=== PATIENT | male | born 1995 | race Caucasian/White ===

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

== ENCOUNTER 2017-07-21 20:53 | Emergency (ER) | payer OTHER ==
[~2017-07-21] VITALS: Ht 182.9 cm; Wt 83.9 kg
--- NOTE | 2017-07-21 21:58 | RADIOLOGY REPORT ---
EXAMINATION: XR CHEST CLINICAL INFORMATION: 21-year-old boy with chest pain. COMPARISON: Chest x-ray done 07/11/2017. (Negative). TECHNIQUE: 2 views of the chest were obtained. FINDINGS: No significant abnormality is noted involving the heart, lungs, mediastinum, bony thorax or soft tissues. IMPRESSION: Unremarkable examination.
[2017-07-21 22:01] LABS: ABSOLUTE BASOPHIL COUNT 0 /CUMM (0.0-0.2); ABSOLUTE EOSINOPHIL COUNT 0.1 /CUMM (0.0-0.7); ABSOLUTE GRANULOCYTE CT 3.7 /CUMM (1.4-6.5); ABSOLUTE LYMPH COUNT 1.8 /CUMM (1.2-3.4); ABSOLUTE MONOCYTE COUNT 0.5 /CUMM (0.10-0.60); BASOPHIL % 0.6 % (0.0-2.0); EOSINOPHIL % 2.1 % (0-5); HEMATOCRIT 43.4 % (42-52); MEAN CORPUSCULAR HGB 31.3 PG (27.0-31.0); MEAN CORPUSCULAR HGB CONC 34.8 G/DL (33.0-37.0); MEAN CORPUSCULAR VOLUME 90.1 FL (80.0-94.0); MEAN PLATELET VOLUME 7.7 FL (7.4-10.4); PLATELET COUNT 238 /CUMM (130-400); RBC DISTRIBUTION WIDTH 12.5 % (11.5-14.5); RED BLOOD CELL CT 4.82 /CUMM (4.70-6.10); WHITE BLOOD CELL COUNT 6.2 /CUMM (4.8-10.8)
--- NOTE | 2017-07-21 22:25 | ED CARDIAC/CP/PALPITATIONS ---
History of Present Illness General Chief Complaint: Chest Pain Stated Complaint: CHEST PAIN, INCREASED HEART RATE PER PT X FEW WKS Source: patient Exam Limitations: no limitations Vital Signs & Intake/Output Vital Signs & Intake/Output Vital Signs Date Time Temp Pulse Resp B/P B/P Pulse O2 O2 Flow FiO2 Mean Ox Delivery Rate 07/21 2242 98.1 66 16 121/64 99 Room Air 07/21 2151 Room Air 07/215 98.2 62 16 135/58 97 Room Air Allergies Coded Allergies: NO KNOWN ALLERGIES (12/04/10) Reconcile Medications Omeprazole 20 MG TABLET. 1 TAB PO DAILY ACID REFLUX Triage Note: 21M WITH COUGH XMONTHS, WAS PUT ON BREO WITHOUT IMPROVEMENT. NOTICED INTERMITTENT CHEST PAIN TODAY, PRIMARILY TO LEFT CHEST WALL, THEN MOVED TO RIGHT SIDE. MOM REPORTS RASH TO HIS CHEST EARLIER THIS WEEK. SINUS CATRACHO ON EKG. DENIES ASSOCIATED SOB/BRAN/PALP OR DIAPHORESIS. SPEECH CLEAR Triage Nurses Notes Reviewed? yes Onset: Abrupt Duration: week(s): (1), intermittent Timing: recent history Location: central Radiation: no radiation Activities at Onset: none HPI: 21-year-old male comes into the emergency room for further evaluation of intermittent chest pain for the past week that was worse today. He reports that he also felt like his heart was pounding. Denies any shortness of breath. Denies any fever or vomiting. He's been experiencing a cough for about 6-7 months. He was placed on a inhaler about 10 days ago. His symptoms of chest pain started shortly after. (Jim Wiggins) Past History Travel History Traveled to [place] past 21 day No Medical History Any Pertinent Medical History? see below for history Neurological: NONE EENT: NONE Cardiovascular: NONE Respiratory: NONE Gastrointestinal: NONE Hepatic: NONE Renal: NONE Musculoskeletal: NONE Psychiatric: NONE Endocrine: NONE Surgical History Surgical History: none Psychosocial History What is your primary language Honduran Tobacco Use: Never used ETOH Use: occasional use Illicit Drug Use: denies illicit drug use Family History Hx Contributory? No (Jim Wiggins) Review of Systems Review of Systems Constitutional: Reports: no symptoms. EENTM: Reports: no symptoms. Respiratory: Reports: no symptoms. Cardiovascular: Reports: see HPI. GI: Reports: no symptoms. Genitourinary: Reports: no symptoms. Musculoskeletal: Reports: no symptoms. Skin: Reports: no symptoms. Neurological/Psychological: Reports: no symptoms. Hematologic/Endocrine: Reports: no symptoms. Immunologic/Allergic: Reports: no symptoms. All Other Systems: Reviewed and Negative (Jim Wiggins) Physical Exam Physical Exam General Appearance: well developed/nourished, no apparent distress, alert, awake Head: atraumatic, normal appearance Eyes: Bilateral: normal appearance, EOMI. Ears, Nose, Throat: normal ENT inspection, hearing grossly normal Neck: normal inspection Respiratory: normal breath sounds, no respiratory distress Cardiovascular: regular rate/rhythm Back: normal inspection Extremities: normal inspection, normal range of motion, no edema Neurologic/Psych: awake, alert, oriented x 3 Skin: intact, normal color Core Measures ACS in differential dx? Yes CVA/TIA Diagnosis No Sepsis Present: No Sepsis Focused Exam Completed? No All Positive = PERC Ruled Out: Positive: age < 50 years, heart rate < 100 bpm, O2 sat > 94%, no hemoptysis, no hormone use, no prior DVT or PE, no unilateral leg swellin, no surgery/trauma w/ in 4w. Wells Criteria Score: 0 (Jim Wiggins) Progress Differential Diagnosis: AMI, costochondritis, musculoskeletal pain, myocarditis, pancreatitis, pericarditis, pneumonia, pneumothorax, pulmonary embolism, PUD/ GERD, PVCs/PACs, unstable angina, V-fib/V-Tach, WPW syndrome Plan of Care: Orders Procedure Date/time Status TROPONIN LEVEL 07/21 2126 Complete D-DIMER 07/21 2126 Complete COMPREHENSIVE METABOLIC PANEL 07/21 2126 Complete CBC WITHOUT DIFFERENTIAL 07/21 2126 Complete EKG 07/21 2054 Active Laboratory Tests 07/21/172144: Anion Gap 12, Estimated GFR > 60, BUN/Creatinine Ratio 23.8, Glucose 95, Calcium 9.8, Total Bilirubin 0.7, AST 19, ALT 31, Alkaline Phosphatase 58, Troponin I < 0.01, Total Protein 7.2, Albumin 4.5, Globulin 2.7, Albumin/Globulin Ratio 1.7, D-Dimer High Sensitivty < 200, CBC w Diff NO MAN DIFF REQ, RBC 4.82, MCV 90.1, MCH 31.3 H, MCHC 34.8, RDW 12.5, MPV 7.7, Gran % 59.0, Lymphocytes % 29.8, Monocytes % 8.5, Eosinophils % 2.1, Basophils % 0.6, Absolute Granulocytes 3.7, Absolute Lymphocytes 1.8, Absolute Monocytes 0.5, Absolute Eosinophils 0.1, Absolute Basophils 0 Diagnostic Imaging: Viewed by Me: Radiology Read. Discussed w/RAD: Radiology Read. Radiology Impression: PATIENT: BYRON ZAMORA PRESENT AGE: 21 PATIENT ACCOUNT NO: [id number] : 97 LOCATION: [facility] ORDERING PHYSICIAN: Jim RUTH SERVICE DATE: 07/21/17 EXAM TYPE: RAD - XRY-CHEST XRAY, TWO VIEWS EXAMINATION: XR CHEST CLINICAL INFORMATION: 21-year- old boy with chest pain. COMPARISON: Chest x-ray done 07/11/2017. (Negative). TECHNIQUE: 2 views of the chest were obtained. FINDINGS: No significant abnormality is noted involving the heart, lungs, mediastinum, bony thorax or soft tissues. IMPRESSION: Unremarkable examination. DICTATED BY: Myles Day MD DATE/TIME DICTATED:07/21/172153 BIN CLEANER:HILDA DATE/ TIME TRANSCRIBED:07/21/172153 CONFIDENTIAL, DO NOT COPY WITHOUT APPROPRIATE AUTHORIZATION. <Electronically signed in Other Vendor System> SIGNED BY: Myles Day MD 07/21/172157 Initial ED EKG: normal sinus rhythm, rate (53) (Jim Wiggins) Departure Departure Disposition: HOME OR SELF CARE Condition: Stable Clinical Impression Primary Impression: Intermittent chest pain Referrals: Familia Messina DO (PCP/Family) Additional Instructions: Follow-up with your PCP. Discontinue your nebulizer pump. Return if any concerns worsening symptoms. Take omeprazole as prescribed. Please go over all results of today's visit with your primary care doctor. Contact your primary care doctor to let them know you were here in the emergency room. There may be nonspecific findings which may not be related to your visit today here in the emergency room but may require further evaluation and chronic monitoring by your primary care doctor. If you had a laceration today the chance of foreign body always remains. You should follow-up with your primary care doctor for recheck in 3-5 days for a wound check. If you had an x-ray done there is a chance that a fracture could have been missed on initial read and you should follow-up with your primary care doctor for repeat x-rays if symptoms persist. If your blood pressure was elevated here in the emergency room please have rechecked by hyour primary care doctor within the next 48. If you were prescribed a narcotic here in the emergency room or any type of controlled substances you're not allowed to drive while taking this medication or operate any type of heavy machinery. Narcotics can make you feel lightheaded dizziness nausea and can cause constipation. You may need to pickler helper a stool softener. Thank you for choosing emergency room. Please return to the emergency room immediately if you have any other concerns worsening of symptoms. Departure Forms: Customer Survey General Discharge Information Prescriptions: Current Visit Scripts Omeprazole 1 TAB PO DAILY #30 TAB (Jim Wiggins) PA/CLAIMS PROCESSOR Co-Sign Statement Statement: ED Attending supervision documentation- [] I saw and evaluated the patient. I have also reviewed all the pertinent lab results and diagnostic results. I agree with the findings and the plan of care as documented in the PA's/CLAIMS PROCESSOR's documentation. [X] I have reviewed the ED Record and agree with the PA's/CLAIMS PROCESSOR's documentation. [] Additions or exceptions (if any) to the PAs/CLAIMS PROCESSOR's note and plan are summarized below: [] (Rajat FAIRBANKS,Gabe Obando) Critical Care Note Critical Care Note Critical Care Time: non-applicable (Jim Wiggins)
[2017-07-21 22:42] VITALS: BP 121/64
[2017-07-21] MEDS ORDERED: OMEPRAZOLE20 M3 PO (22:49)
== END 2017-07-21 23:13 ==
LOC: ERH 20:53
PROVIDERS: Physician Assistant Medical
DX: R07.89 Other chest pain (principal)
CPT/HCPCS: 71046; 93005; 93010